=== PATIENT | female | born 1965 | race Caucasian/White ===

== ENCOUNTER 2017-11-02 09:57 | Emergency (ER) | payer OTHER ==
[~2017-11-02] VITALS: Ht 154.9 cm; Wt 59.0 kg
[~2017-11-02 09:57] MED LIST: TRAM-462 PO
[2017-11-02 10:06] VITALS: BP 168/85; PULSE 82; RESP 16; TEMP 98.2; O2SAT 99
[2017-11-02] MEDS ORDERED: VERA80TA PO (10:13)
[2017-11-02] MEDS ORDERED: HYDR-3580 PO (10:13)
[2017-11-02] MEDS ORDERED: CIPR0.3S2 LEFT EYE (10:44)
--- NOTE | 2017-11-02 10:45 | PD ---
HPI Chief Complaint: Eye Problems/Injury Time Seen by Provider: 10:33 Travel History International Travel<30 days: No Contact w/Intl Traveler<30days: No Traveled to known affect area: No History of Present Illness HPI 52-year-old female presents to the emergency department for evaluation of left eye irritation that started yesterday, but worse this morning. She states she feels like she has a foreign body in her left eye. She does wear contacts, but was able to remove her contact in her left eye without difficulty. No fevers or chills. No visual changes. Patient currently rates the irritation 02/04. No radiation. She states she has had clear drainage from the left eye. No trauma. Moderate severity. PFSH Past Medical History Cancer: No Cardiovascular Problems: No Diabetes: No Diminished Hearing: No Endocrine: No Genitourinary: No Hepatitis: No Hiatal Hernia: No Immune Disorder: No Musculoskeletal: Yes (R CARPAL TUNNEL) Neurologic: No Psychiatric: No Reproductive: No Respiratory: No Immunizations Current: Yes Thyroid Disease: Yes (HYPERTHYROID) ?: Not Menopausal: Yes : 2 Para: 2 Past Surgical History Section: Yes (X 2) Gynecologic Surgery: Yes (C SECTION X 2) Joint Replacement: No Pacemaker: No Other Surgery: Yes Social History Alcohol Use: Yes (RARE) Tobacco Use: Yes (1/2 PPD) Substance Use: No Allergies-Medications (Allergen,Severity, Reaction): Coded Allergies: No Known Allergies (Verified Adverse Reaction, Unknown, 11/02/17) Reported Meds & Prescriptions Reported Meds & Active Scripts Active Reported Hydrocodone-Acetaminophen 7.5 Mg-325 Mg Tab 1 Tab PO Q6H PRN Verapamil (Verapamil HCl) 80 Mg Tab 80 Mg PO TID Review of Systems Except as stated in HPI: all other systems reviewed are Neg Physical Exam Narrative GENERAL: Well-nourished, well-developed female patient, ambulatory. Afebrile. SKIN: Focused skin assessment warm/dry. HEAD: Normocephalic. Atraumatic. ENT: Mucosa pink and moist. No erythema or exudates. No uvular edema. No uvular , palatal, or tonsillar deviation. Airway patent. Nasal turbinates appear normal without nasal blood, purulent drainage or septal hematoma. Bilateral tympanic membranes clear without erythema or perforation. EYES: No scleral icterus. Left conjunctiva is erythematous. No foreign body seen in upper lid eversion. Fluorescein examination is negative. No photophobia on exam. NECK: Supple, trachea midline. No JVD or lymphadenopathy. CARDIOVASCULAR: Regular rate and rhythm without murmurs, gallops, or rubs. RESPIRATORY: No accessory muscle use. MUSCULOSKELETAL: No cyanosis, or edema. Data Data Last Documented VS Vital Signs Date Time Temp Pulse Resp B/P (MAP) Pulse Ox O2 Delivery O2 Flow Rate FiO2 11/02/17 10:06 98.2 82 16 168/85 (112) 99 MDM Medical Decision Making Medical Screen Exam Complete: Yes Emergency Medical Condition: Yes Medical Record Reviewed: Yes Differential Diagnosis Foreign body versus corneal abrasion versus conjunctivitis versus iritis Narrative Course 52-year-old female presents to the emergency department for evaluation of left eye irritation started yesterday, worsening today. No foreign body seen in upper lid eversion. Fluorescein examination was negative. Patient will be discharged prescription for ciprofloxacin ophthalmic drops. She is to follow- up with an supervising librarian on Saturday if symptoms continue. She verbalizes agreement. Diagnosis Primary Impression: Conjunctivitis, left eye Qualified Codes: H10.32 - Unspecified acute conjunctivitis, left eye Referrals: Liliana Pickett MD Patient Instructions: Conjunctivitis (ED), General Instructions Additional Instructions: Use antibiotic eyedrops as directed. Do not wear contact in left eye until symptoms are resolved. Warm, moist compresses as needed. Follow up with Dr. Pickett on Saturday if symptoms continue or worsen. Return to the emergency department for any acute worsening of symptoms Med/Other Pt SpecificInfo: Prescription(s) given Scripts Ciprofloxacin Opth Drops (Ciprofloxacin Opth Drops) 0.3% Soln 2 DROP LEFT EYE Q4H for Infection, #1 BOTTLE 0 Refills while awake x 5 days. Prov: Anuradha Jon 11/02/17 Disposition: 01 DISCHARGE HOME Condition: Stable Anuradha Jon Nov 02, 2017 10:45
== END 2017-11-02 10:57 | disposition home or self-care (01) ==
LOC: PHEFT 09:57
DX: H10.32 Unspecified acute conjunctivitis, left eye (principal); E05.90 Thyrotoxicosis, unspecified without thyrotoxic crisis or storm; F17.210 Nicotine dependence, cigarettes, uncomplicated
CPT/HCPCS: 99283